=== PATIENT | female | born 2000 | race Caucasian/White ===

== ENCOUNTER 2020-01-11 19:17 | Outpatient (CLI) | payer SELFPAY ==
[~2020-01-11] VITALS: Ht 165.1 cm; Wt 78.4 kg
[2020-01-11 19:38] VITALS: BP 126/64
[2020-01-11 20:05] LABS: APPEARANCE, URINE HAZY (CLEAR); BACTERIA, URINE AUTO NEGATIVE (NEGATIVE); BILIRUBIN, URINE AUTO NEGATIVE (NEGATIVE); BLOOD, URINE BLOOD NEGATIVE (NEGATIVE); COLOR, URINE YELLOW (YELLOW); GLUCOSE, URINE (UA) AUTO NEGATIVE (NEGATIVE); KETONE, URINE AUTO NEGATIVE (NEGATIVE); LEUKOCYTE ESTERASE, URINE AUTO NEGATIVE (NEGATIVE); NITRITE, URINE AUTO NEGATIVE (NEGATIVE); PROTEIN, URINE AUTO NEGATIVE (NEGATIVE); RBC, URINE AUTO 0 /HPF (0-3); SPECIFIC GRAVITY URINE AUTO 1.008 (1.002-1.035); SQUAMOUS EPITHELIAL CELL UR AU 1 /HPF (0-6); UROBILINOGEN, URINE AUTO 0.2 mg/dL (0.0-2.0); WBC, URINE AUTO 0 /HPF (0-3)
--- NOTE | 2020-01-11 20:40 | IPNPDOC ---
Text Note Date of Service The patient was seen on 01/11/20. NOTE Patient is 19yo G P at 32.2wks. C/o no movement for a few hours. No contractions. No loss of fluid or bleeding. Good movement since drinking jasson dana here. FHT: Category 1, 130s, reactive, no decels. no contractions. Fetus reassuring. Patient not in labor and no rupture of membranes. Patient given labor precautions, rupture of membranes precautions and kick counts. She has a follow up appt. Teri Acosta MD Jan 11, 2020 20:40
== END 2020-01-11 20:30 | disposition home or self-care (01) ==
LOC: M LDO 19:17
PROVIDERS: ATTEND Obstetrics & Gynecology
DX: O36.8130 Decreased fetal movements, third trimester, not applicable or unspecified (principal); Z3A.32 32 weeks gestation of pregnancy; Z91.040 Latex allergy status
CPT/HCPCS: 59025; 81001; G0378; G0463

== ENCOUNTER → 2020-03-03 | Outpatient (CLI) | payer OTHER ==
[~2020-03-03] MED LIST: MAPA500T2 PO; PANT20TA2 PO; PRENTAB9 PO; SUCR1TAB56 PO
[2020-03-03 10:06] LABS: HEMATOCRIT 39.3 % (36.0-47.0); HEMOGLOBIN 13.8 g/dl (12.0-15.5); MEAN CORPUSCULAR HEMOGLOBIN 31.2 pg (27.0-33.0); MEAN CORPUSCULAR HGB CONC 35.1 g/dl (32.0-36.5); MEAN CORPUSCULAR VOLUME 88.9 fl (80.0-96.0); PLATELET COUNT, AUTOMATED 230 10^3/uL (150-450); RED BLOOD COUNT 4.42 10^6/uL (4.00-5.40); WHITE BLOOD COUNT 9.5 10^3/uL (4.0-10.0)
[2020-03-03 10:59] LABS: CREATININE,RANDOM URINE 60.3 MG/DL; TOTAL PROTEIN,RANDOM URINE 14.6 MG/DL (0.0-12.0)
[2020-03-03 10:59] LABS: ALBUMIN 2.8 GM/DL (3.2-5.2); ALT/SGPT 30 U/L (12-78); BILIRUBIN,TOTAL 0.4 MG/DL (0.2-1.0); BLOOD UREA NITROGEN 12 MG/DL (7-18); CALCIUM LEVEL 8.7 MG/DL (8.5-10.1); CARBON DIOXIDE LEVEL 23 MEQ/L (21-32); CHLORIDE LEVEL 108 MEQ/L (98-107); CREATININE FOR GFR 0.67 MG/DL (0.55-1.30); GLUCOSE, FASTING 78 MG/DL (70-100); GLUCOSE,RANDOM 78 MG/DL (LESS THAN 200); LDH LACTATE DEHYDROGENASE 164 U/L (84-246); POTASSIUM SERUM 4.5 MEQ/L (3.5-5.1); SODIUM LEVEL 139 MEQ/L (136-145); TOTAL PROTEIN 6.6 GM/DL (6.4-8.2); URIC ACID 3.2 MG/DL (2.6-6.0)
[2020-03-03 11:37] LABS: HEMOGLOBIN A1c 5.5 %
== END ==
LOC: M LAB 09:12
PROVIDERS: ATTEND Obstetrics & Gynecology
DX: O14.90 Unspecified pre-eclampsia, unspecified trimester (principal)

== ENCOUNTER 2020-03-06 14:17 | Inpatient (IN) | payer OTHER ==
[2020-03-06] VITALS (7 sets, daily range): BP systolic 114–127; BP diastolic 58–77
[~2020-03-06] VITALS: Ht 162.6 cm; Wt 80.1 kg
[2020-03-06] MEDS ORDERED: PRENTAB9 PO (14:38)
[2020-03-06] MEDS ORDERED: MAPA500T2 PO (14:38)
[2020-03-06] MEDS ORDERED: PANT20TA2 PO (14:38)
[2020-03-06] MEDS ORDERED: SUCR1TAB56 PO (14:38)
[2020-03-06 15:44] LABS: HEMATOCRIT 36.5 % (36.0-47.0); HEMOGLOBIN 12.8 g/dl (12.0-15.5); MEAN CORPUSCULAR HEMOGLOBIN 30.8 pg (27.0-33.0); MEAN CORPUSCULAR HGB CONC 35.1 g/dl (32.0-36.5); MEAN CORPUSCULAR VOLUME 87.7 fl (80.0-96.0); PLATELET COUNT, AUTOMATED 239 10^3/uL (150-450); RED BLOOD COUNT 4.16 10^6/uL (4.00-5.40); WHITE BLOOD COUNT 8.3 10^3/uL (4.0-10.0)
[2020-03-06] MEDS ORDERED: LACTATED RINGER'S 1000 ML IV ONE (16:45)
[2020-03-06] MEDS ORDERED: miSOPROStol 50 MCG 1/2 TAB (S0191) PO ONE ×2 (16:45→20:45)
--- NOTE | 2020-03-06 17:04 | HPE ---
DATE OF ADMISSION: 03/06/2020 This is a 19-year-old 1, para 0, last menstrual period (LMP) 06/06/2019, estimated date of confinement (EDC) 03/31/2020 at 39 weeks of gestation, admitted for induction of labor because of history of gestational hypertension, two episodes of midrange blood pressures, and a gestational diabetes mellitus (GDM) 1 despite diet was uncontrolled and had a three-hour glucose tolerance test (GTT) abnormal. Her risk factors is she had an elevated three-hour GTT and she has gestational hypertension. LABORATORY DATA: B+, HIV negative, hepatitis negative, RPR negative, rubella immune. Varicella immune. Urine was negative. Gonorrhea and chlamydia are negative. Her initial one-hour glucose was 162. Her three-hour GTT: Her fasting was 76, her one-hour was 202, her two-hour was 190, and her three-hour was 98. She apparently was on diet, but her two-hour PC's at supper were above the requested normal range. She is GBS negative. Her urine is 10/10, pH 6, +1 leukocytes. Her fasting blood sugar is 129, hemoglobin 12.8, hematocrit 36.5 and platelets 239. Her protein creatinine ratio is 0.02. Her A1c is 5.5 and her glucose presently is 111. Her uric acid is 3.2 and her alkaline phosphatase is elevated at 176. PHYSICAL EXAMINATION: On examination, there is no distress. Symphysis fundus height is 40. Category 1 strip, vertex, occiput anterior (OA), anterior, fingertip soft, 50% effaced, -3 station. The rest of the examination is unremarkable. She is normocephalic, atraumatic. Neck: Full range of motion. Pupils equal and reactive to light. Distal pulses are symmetric. No evidence of deep vein thrombosis (DVT), pulmonary embolism (PE) or superficial phlebitis. Chest is clear bilaterally to bases. No wheezes or rhonchi. No costovertebral angle (CVA) tenderness. Abdomen: Soft. Four quadrant bowel sounds are noted. Appropriate fundal height. She has no rashes, lesions or pruritus. No arthralgia or myalgia. No complaint of joint pain. No complaint of cough, wheeze, shortness of breath or dyspnea on exertion. No bleeding. No bruising. She is neurologically complete. No incontinence, urgency, or frequency. No nausea, vomiting, diarrhea or constipation. Diabetic issues as mentioned. She failed her three-hour glucose tolerance test (GTT). She has no heat or cold sensitivity. her gynecologic history is unremarkable. She is under the age of 21. No Pap smear. Past medical and surgical history is unremarkable. Family history is noncontributory. She does not smoke, drink, or abuse drugs. She is to a soldier. No domestic violence and there is good support. She has no allergies. She is presently taking vitamins. We discussed the consent for vaginal delivery which is delivery through the vagina with the possibility of assistance of forceps or vacuum devices if needed for maternal or indications. Forceps or vacuum devices can assist with vaginal delivery when normal pushing efforts cannot achieve delivery on their own or when delivery is needed in an emergency for baby's well-being. Medications may be required to induce or augment labor in order to achieve vaginal delivery. An episiotomy may be required to help baby deliver vaginally. She may also require repair of any lacerations or tears of the vagina or vulva that are caused by delivery. In some cases, emergencies can occur requiring an emergency section delivery so quickly that there may not be time to sign consent form. However, your provider will discuss the indications for emergency section and this is delivery through the abdomen and it may be safer for the mother and the baby than continuing labor and is only performed for clinical indications,. The risks of vaginal delivery include but not limited to bleeding, infection, injury to vagina, pelvic structures, injury to baby, damage to the uterus, reaction to anesthesia, uterine rupture, risk remote of hysterectomy for life-threatening bleeding issues or , medications used to induce or augment labor may increase risk for infection, uterine tachysystole, uterine rupture, heart rate abnormalities, need for emergency section or possible hysterectomy and hemorrhage. Additional risks for use of forceps or vacuum include scratches, hematomas to the head or intracranial bleed. The patient verbalized understanding of all the situation. All questions were answered. A 30-minute discussion. The patient consents to proceed.
[2020-03-07] VITALS (44 sets, daily range): BP systolic 99–133; BP diastolic 51–74
[2020-03-07] MEDS ORDERED: OXYTOCIN DRIP 30 UNITS in IV 1 EA IV SCH (03:15)
[2020-03-07] MEDS: LR 1,000 ML IV SCH ×4 (07:27→16:06)
--- NOTE | 2020-03-07 08:17 | IPN ---
DATE: 03/07/2020 This lady is a 1, para 0, who was admitted at 39 weeks of gestation for induction of labor because of gestational hypertension and AGDM1. She had two lots of Cytotec 50 mg by mouth and had some contractions. Presently woke up with occasional tightening contraction. Has a category one strip. Blood pressure 108/52, respirations 17, pulse 77, and temperature is 98.3. We negotiated a Cook catheter 60/40 into the cervix and will augment with Pitocin. Again, category one strip. Safe to proceed.
[2020-03-07] MEDS ORDERED: FENTANYL 2MCG/ML ROPIVACAINE 0.2% IN 0.9% NACL 100ML IVBAG As Ordered ONE (14:57)
[2020-03-07 15:06] LABS: HEMATOCRIT 41.8 % (36.0-47.0); HEMOGLOBIN 14.5 g/dl (12.0-15.5); MEAN CORPUSCULAR HEMOGLOBIN 30.5 pg (27.0-33.0); MEAN CORPUSCULAR HGB CONC 34.7 g/dl (32.0-36.5); MEAN CORPUSCULAR VOLUME 87.8 fl (80.0-96.0); PLATELET COUNT, AUTOMATED 219 10^3/uL (150-450); RED BLOOD COUNT 4.76 10^6/uL (4.00-5.40); WHITE BLOOD COUNT 12.7 10^3/uL (4.0-10.0)
--- NOTE | 2020-03-07 15:45 | IPN ---
DATE: 03/07/2020 at 02:40 p.m. This lady is admitted for induction of labor for gestational hypertension and gestational diabetes mellitus (GDM), type 1. She had a spontaneous rupture of membranes after the Marcelino bulb came out and she had a spontaneous clear fluid. Her blood pressure presently is 112/72, respirations 18, pulse is 92, temperature is 98.1. Examination is her cervix is anterior. She is 2 cm, tight, not well applied, about 50% effaced, -3 station. Category 1 strip. The contractions are moderate in intensity and the patient is thinking about pain management.
[2020-03-07] MEDS ORDERED: REFRIGERATOR IV KEYS XX PRN (16:00)
[2020-03-07] MEDS ORDERED: EPIDURAL/PCA KEYS XX PRN (16:00)
[2020-03-07] MEDS ORDERED: EPIDURAL COMMENT XX SCH (16:00)
[2020-03-07] MEDS ORDERED: diphenhydrAMINE 50MG/ML VIAL (J1200) IV PRN (16:00)
[2020-03-07] MEDS ORDERED: FENTANYL/ROPIVACAINE/NACL BAG 100 ML EPIDURAL SCH (16:00)
[2020-03-07] MEDS ORDERED: ONDANSETRON 4MG/2ML VIAL IV PRN (16:00)
[2020-03-07] MEDS ORDERED: NALOXONE INJ 0.4MG/1ML VIAL (J2310 PER 1MG) IV PRN (16:00)
[2020-03-07] MEDS ORDERED: ePHEDrine SULFATE 25 MG/5 ML(5MG/ML) SYRINGE IV PRN (16:45)
[2020-03-07] MEDS ORDERED: LACTATED RINGER'S 1000 ML IV PRN (16:45)
[2020-03-07 20:33] LABS: CORD GAS ABE A -8.7; CORD GAS ABE V -6.2; CORD GAS HCO3 A 19.8 MEQ/L; CORD GAS HCO3 V 18.3 MEQ/L; CORD GAS O2 SAT A 47.7 %; CORD GAS O2 SAT V 89.3 %; CORD GAS PCO2 A 53.1 mmHg; CORD GAS PH A 7.19 UNITS; CORD GAS PH V 7.35 UNITS; CORD GAS PO2 A 24.6 mmHg; CORD GAS PO2 V 48.1 mmHg; CORD GAS SBC A 16.5 MEQ/L; CORD GAS SBC V 19.3 MEQ/L; CORD GAS TCO2 A 21.5 MEQ/L; CORD GAS TCO2 V 19.4 MEQ/L
[2020-03-07] MEDS ORDERED: MOM 30ML SUSPENSION UDC PO PRN (20:45)
[2020-03-07] MEDS ORDERED: IBUPROFEN 800 MG TAB PO PRN (20:45)
[2020-03-07] MEDS ORDERED: ACETAMINOPHEN TAB 650MG DOSE (2X325MG) PO PRN (20:45)
[2020-03-07] MEDS ORDERED: RHOGAM 300 MCG (1500 IU) INJ (J2790) IM SCH (20:45)
[2020-03-07] MEDS ORDERED: ANUSOL HC CREAM 30GM TOP PRN (20:45)
[2020-03-07] MEDS ORDERED: DIBUCAINE 1% OINTMENT 30GM TOP PRN (20:45)
[2020-03-07] MEDS ORDERED: METHYLERGONOVINE MALEATE 0.2 MG TAB PO PRN (20:45)
[2020-03-07] MEDS ORDERED: IBUPROFEN 600 MG TAB PO PRN (20:45)
[2020-03-07] MEDS ORDERED: OXYTOCIN DRIP 30 UNITS in IV 1 EA IV ONE (20:45)
[2020-03-07] MEDS ORDERED: ACETAMINOPHEN 500 MG TAB PO PRN (20:45)
[2020-03-07] MEDS ORDERED: DOCUSATE SODIUM 100 MG CAP PO PRN (20:45)
[2020-03-07] MEDS ORDERED: MEASLES,MUMPS,RUBELLA VACCINE INJ (MMR-II) (90707) SC SCH (20:45)
[2020-03-08 06:00] VITALS: BP 119/65
[2020-03-08 07:05] LABS: HEMATOCRIT 38.6 % (36.0-47.0); HEMOGLOBIN 13.8 g/dl (12.0-15.5); MEAN CORPUSCULAR HEMOGLOBIN 31.2 pg (27.0-33.0); MEAN CORPUSCULAR HGB CONC 35.8 g/dl (32.0-36.5); MEAN CORPUSCULAR VOLUME 87.1 fl (80.0-96.0); PLATELET COUNT, AUTOMATED 227 10^3/uL (150-450); RED BLOOD COUNT 4.43 10^6/uL (4.00-5.40); WHITE BLOOD COUNT 18.6 10^3/uL (4.0-10.0)
[2020-03-08] MEDS: PRENATAL VITAMINS CHEWABLE TABLET PO SCH (11:14)
--- NOTE | 2020-03-08 14:02 | DN ---
DATE OF DELIVERY: 03/07/2020 DELIVERY NOTE: This lady is a 19-year-old, 1, now para 1 was admitted for induction of labor at 39 weeks because of gestational hypertension and AGDM1. She had induction of labor with misoprostol and Marcelino bulb Pitocin. Had a spontaneous rupture of membranes of clear liquor. An epidural in place. She delivered over an intact perineum a live female weighing 6 pounds 9 ounces (2990 grams), score of 9 and 9 at one and five minutes respectively. Arterial pH 7.19, base excess -8.7. Venous pH 7.35, base excess -6.2. Placenta delivered spontaneously thereafter. Three-vessel cord, membranes and tissues intact. She had a small right vaginal wall tear secondary to her excessive vomiting at the time of delivery that was repaired with #2-0 Vicryl and [id number]. The anterior, posterior and lateral matos and sphincter were intact. The uterus contracted well under Pitocin. The patient and baby tolerated procedure well. edited: 03/10/2020 1027 tkf AWAIS
--- NOTE | 2020-03-08 14:37 | IPN ---
DATE OF SERVICE: 03/08/2020 day #1. This lady is a 19-year-old 1, now para 1, admitted, induction of labor at 39 weeks for gestational hypertension and gestational diabetes mellitus (GDM) 1. Delivered a female , 6 pounds 9 ounces, 2990 grams. On her first day, we discussed phlebitis, cystitis, mastitis, endometritis and cellulitis, diet, exercise, pain management, perineal, breast, and wound care. Presently, her blood pressure is 119/65, respirations are 17, pulse 96, and temperature is 98.1. Her admitting hemoglobin was 12.8, hematocrit 36.5, and platelets are 239. day #1 hemoglobin 14.4, hematocrit 41.8, and platelets are 219. The rest of the examination unremarkable. Normocephalic, atraumatic. Neck: Full range of motion. Pupils equal and reactive to light. Distal pulses symmetric. No evidence of deep venous thrombosis (DVT), pulmonary embolism (PE), or superficial phlebitis. Chest is clear bilaterally to bases. No wheezes or rhonchi. No costovertebral angle (CVA) tenderness. Abdomen: Soft. four-quadrant bowel sounds are noted. Uterus 2 below. Lochia is moderate. Perineum is intact. No rashes, lesions or pruritus. No arthralgia or myalgia. No complaint of joint pain. No complaint of cough, wheeze, shortness of breath, or dyspnea on exertion. No nausea, vomiting, diarrhea, or constipation. No urgency or frequency. Plans are for discharge possibly tomorrow morning after neonatology reviews the baby and a 6-week checkup. All medications are at [facility] ([facility]) for dispensing. The patient expressed understanding of the same. 20-minute discussion. All questions were answered.
[2020-03-08 18:21] VITALS: BP 109/57
[2020-03-09 05:46] VITALS: BP 119/58
[2020-03-09] MEDS: PRENATAL VITAMINS CHEWABLE TABLET PO SCH (07:58)
[2020-03-09 08:15] VITALS: BP 119/58
--- NOTE | 2020-03-09 08:22 | IPNPDOC ---
Progress Note Date of Service: Mar 09, 2020 Day#: 2 Progress Note PPD 2 SUBJECT: Hussein is a 19yo [id number] s/p uncomplicated at term after IOL for GHTN and A1GDM, doing well on PPD2. She has been ambulating, voiding spontaneously without issue and tolerating regular diet. Breast feeding without issue. Reports lochia is like a normal period. No f/c/n/v/CP/SOB. OBJECTIVE: VITAL SIGNS: Within normal limits, afebrile. Alert and oriented times three. Abdomen: Fundus firm at U-2. Soft, NTTP. Extremities: no pain with palpation of calves ASSESSMENT: Hussein is a 19yo [id number] s/p uncomplicated at term after IOL for GHTN and A1GDM, doing well on PPD2. Vitals within normal limits, afebrile, hemodynamically stable with no evidence of infection. PLAN: 1. Discharge to home today. 2. Tylenol and Motrin for pain. 3. Encourage breast feeding and ambulation. 4. Would like an IUD for contraception 5. Routine PP visit in 6 weeks in clinic. Instructed to come to office for bp check on Thurs or Fri 6. Discussed return precautions at length. Dr. Aarti Petit MD VS, I&O, 24H, Fishbone Vital Signs/I&O Vital Signs Date Time Temp Pulse Resp B/P (MAP) Pulse Ox O2 Delivery O2 Flow Rate FiO2 03/09/20 05:46 97.2 69 18 119/58 (78) 03/08/20 06:00 99 Room Air Aarti Petit MD Mar 09, 2020 08:22
[2020-03-09] MEDS ORDERED: DOCU100C16 PO (08:26)
--- NOTE | 2020-03-09 08:29 | DS.PDOC ---
Discharge Summary General Date of Admission Mar 06, 2020 at 14:17 Date of Discharge Mar 09, 2020 Discharge Summary PROCEDURES PERFORMED DURING STAY: spontaneous vaginal delivery ADMITTING DIAGNOSES: 1. induction of labor at term for GHTN and A1GDM DISCHARGE DIAGNOSES: 1. induction of labor at term for GHTN and A1GDM, delivered COMPLICATIONS/CHIEF COMPLAINT: Induction. HISTORY OF PRESENT ILLNESS/HOSPITAL COURSE: Hussein is a 19yo [id number] s/p uncomplicated at term after IOL for GHTN and A1GDM, doing well on PPD2. Benign PP course. Vitals within normal limits, afebrile, hemodynamically stable with no evidence of infection. DISCHARGE MEDICATIONS: Please see below. ALLERGIES: Please see below. PHYSICAL EXAMINATION ON DISCHARGE: VITAL SIGNS: Within normal limits, afebrile. Alert and oriented times three. Abdomen: Fundus firm at U-2. Soft, NTTP. Extremities: no pain with palpation of calves LABORATORY DATA: Please see below. ACTIVITY: vaginal rest and no heavy lifting 6 weeks DIET: regular DISPOSITION: home DISCHARGE PLAN/INSTRUCTIONS: 1. Discharge to home today. 2. Tylenol and Motrin for pain. 3. Encourage breast feeding and ambulation. 4. Would like an IUD for contraception 5. Routine PP visit in 6 weeks in clinic. Instructed to come to office for bp check on Th or Sun 6. Discussed return precautions at length. DISCHARGE CONDITION: Stable TIME SPENT ON DISCHARGE: Greater than [address] Aarti Petit MD Vital Signs/I&Os Vital Signs Date Time Temp Pulse Resp B/P (MAP) Pulse Ox O2 Delivery O2 Flow Rate FiO2 03/09/20 05:46 97.2 69 18 119/58 (78) 03/08/20 06:00 99 Room Air Discharge Medications Scheduled Pantoprazole Sodium (Pantoprazole Sodium) 20 Mg Tablet.dr 20 MG PO DAILY, (Reported) No.137/Iron/Folic Acd ( Vitamin Tablet) 1 Each Tablet, 1 TAB PO DAILY, (Reported) Sucralfate (Sucralfate) 1 Gm Tablet, 1 GM PO DAILY, (Reported) Scheduled PRN Acetaminophen (Mapap) 500 Mg Tablet, 600 MG PO PRN PRN for HEADACHE, (Reported) Docusate Sodium (Docusate Sodium) 100 Mg Capsule, 100 MG PO QHSP PRN for CONSTIPATION Allergies Coded Allergies: chamomile flower (Verified Allergy, Intermediate, HIVES, 03/06/20) latex (Verified Allergy, Intermediate, HIVES, 03/06/20) Aarti Petit MD Mar 09, 2020 08:29
== END 2020-03-09 13:30 | disposition home or self-care (01) | DRG 807 ==
LOC: M LDI 14:17 → M OBS 03-07 22:21
PROVIDERS: ADMIT Obstetrics & Gynecology; ATTEND Obstetrics & Gynecology
PROC: 3E097GC Introduction of Other Therapeutic Substance into Nose, Via Natural or Artificial Opening (ICD-10-PCS; 2020-03-06)
PROC: 0HQ9XZZ Repair Perineum Skin, External Approach (ICD-10-PCS; 2020-03-06)
PROC: 10E0XZZ Delivery of Products of Conception, External Approach (ICD-10-PCS; principal; 2020-03-07)
DX: O13.4 Gestational [pregnancy-induced] hypertension without significant proteinuria, complicating childbirth (principal); Z37.0 Single live birth; Z3A.39 39 weeks gestation of pregnancy; O24.420 Gestational diabetes mellitus in childbirth, diet controlled; O70.0 First degree perineal laceration during delivery